=== PATIENT | male | born 1995 | race African-American/Black ===

== ENCOUNTER 2016-09-09 09:48 | Emergency (ER) | payer OTHER ==
[2016-09-09] MEDS ORDERED: IOPAMIDOL 300 (61%) 150 ML VIAL IV ONE (09:49)
--- NOTE | 2016-09-09 10:47 | RAD ---
CHEST - 2 VIEWS COMPARISON: Chest 2 views, 07/21/2016 HISTORY: Shortness of breath for 3 days. FINDINGS: Views: Frontal and lateral chest Lungs: Normal Heart and vessels: Normal Trachea and bronchi: Normal Mediastinum and wei: Normal Costophrenic sulci: Normal Chest wall and bones: Normal. Upper abdomen: Normal. IMPRESSION: Negative 2 view chest.
[2016-09-09] MEDS ORDERED: KETOROLAC TROMETHAMINE 30 MG/ML 1 ML VIAL ONE (11:35)
[2016-09-09] MEDS ORDERED: ALBUTEROL NEB 2.5 MG/3 ML VIAL.NEB NEB ONE (11:37)
[2016-09-09 11:43] LABS: ABSOLUTE NEUTROPHIL COUNT 10.6 K/mm3 (1.8-7.7); BASO # 0.1 K/mm3 (0.0-0.2); BASO % 0.4 % (0.2-1.0); EOS # 0.5 (0.0-0.5); EOS % 3.2 % (0.9-2.9); HEMATOCRIT 34.7 % (32.0-52.0); HEMOGLOBIN 10.8 gm/l (14.0-18.0); IMM NEUT # 0.2 K/mm3 (0-0.2); IMM NEUT% 1.3 % (0-1); LYMPH % 13.8 % (15-45); MEAN CELL VOLUME 82.2 fl (80.0-94.0); MEAN CORPUSCULAR HEMOGLOBIN 25.6 pg (27.0-31.0); MEAN CORPUSCULAR HGB CONC 31.1 g/dl (33.0-37.0); MEAN PLATELET VOLUME 8.2 fl (7.4-10.4); MONO # 0.9 (0.0-0.8); MONO % 6.1 % (4-12); NEUT % 75.2 % (43-75); PLATELET COUNT 453 K/mm3 (130-400); RED CELL DISTRIBUTION WIDTH 14.2 % (11.5-14.5)
[2016-09-09 11:51] LABS: ALB/GLOB RATIO 0.9 (>1.0); ALBUMIN 3.4 gm/dL (3.5-5.7); CALCIUM 8.9 mg/dL (8.6-10.3)
[2016-09-09 11:54] LABS: TROPONIN I < 0.01 ng/ml (0.0-0.06)
[2016-09-09 11:55] LABS: C-REACTIVE PROTEIN 11.4 mg/dl (<1.0)
[2016-09-09 12:02] LABS: THYROID STIMULATING HORMONE 0.89 uIU/ml (0.34-5.60)
[2016-09-09 13:17] LABS: SPECIFIC GRAVITY 1.015 (1.001-1.030); URINE BILIRUBIN NEGATIVE (NEGATIVE); URINE BLOOD TRACE (NEGATIVE); URINE GLUCOSE (UA) NEGATIVE (NEGATIVE); URINE LEUKOCYTE ESTERASE NEGATIVE (NEGATIVE); URINE NITRITE NEGATIVE (NEGATIVE); URINE PROTEIN NEGATIVE (NEGATIVE); URINE UROBILINOGEN NORMAL (0-1 mg/dl)
[2016-09-09 13:18] LABS: URINE APPEARANCE CLEAR; URINE COLOR DARK YELLOW
[2016-09-09 13:26] LABS: URINE BACTERIA 0; URINE EPITHELIAL CELLS 0-1 /hpf; URINE WBC 0-1 /hpf
--- NOTE | 2016-09-09 13:47 | CT ---
CHEST W/ CON COMPARISON: Chest 2 views, 09/09/2016, CT abdomen and pelvis 06/20/2016 HISTORY: Shortness of breath, weight loss, and night sweats. Early satiety. Left-sided chest pain with pleurisy. Technique: Intravenous injection 125 mL Isovue 370. Using a [employer] Aquilion [address] scanner, images were obtained through the thorax, abdomen, and pelvis. An automated dose reduction technique was used to minimize patient radiation dose. Dose information: CTDIvol (mGy): 5.70 DLP(mGycm): 382.00 FINDINGS (thorax with contrast): Lungs: Normal. Trachea and bronchi: Normal. Heart and vessels: Normal. Mediastinum and wei: Normal. Esophagus: Normal. Pleura and pericardium: Normal. Chest wall and bones: Normal. FINDINGS (abdomen and pelvis with contrast): Liver: Normal Gallbladder: Normal Bile ducts: Normal. Pancreas: Normal Spleen: Mild splenomegaly, splenic index 567, volume 359 mL, weight 377 g Adrenal glands: Normal Kidneys: Normal Ureters: Normal Urinary bladder: Normal Prostate gland and seminal vesicles: Normal Blood vessels: Normal. Lymph nodes: Normal Stomach: Normal Duodenum: Normal Small intestine: Normal Appendix: Normal Colon: Normal Abdominal wall and supporting musculature: Normal Bones: Normal. IMPRESSION: 1. Mild splenomegaly. Otherwise normal study.
--- NOTE | 2016-09-09 13:51 | CT ---
ABD/PELVIS W/ CON COMPARISON: Chest 2 views, 09/09/2016. CT abdomen pelvis, 06/20/2016 HISTORY: Weight loss, night sweats and elevated C-reactive protein. Technique: Intravenous injection 125 mL Isovue 370. Using a [employer] Aquilion [address] scanner, images were obtained from the diaphragm to the floor the pelvis. An automated dose reduction technique was used to minimize patient radiation dose. Dose information: CTDIvol (mGy): 5.70 DLP(mGycm): 382.00 FINDINGS (abdomen and pelvis with contrast): Liver: Normal Gallbladder: Normal Bile ducts: Normal. Pancreas: Normal Spleen: Mild splenomegaly, splenic index 567, volume 359 mL, weight 377 g Adrenal glands: Normal Kidneys: Normal Ureters: Normal Urinary bladder: Normal Prostate gland and seminal vesicles: Normal Blood vessels: Normal. Lymph nodes: Normal Stomach: Normal Duodenum: Normal Small intestine: Normal Appendix: Normal Colon: Normal Abdominal wall and supporting musculature: Normal Bones: Normal. IMPRESSION: 1. Mild splenomegaly. Otherwise normal study. The results were discussed with Gutierrez Edmond M.D., 09/09/2016 at 13:45
[2016-09-09] MEDS ORDERED: DEXAMETHASONE SOD PHOS 10 MG/1 ML VIAL ONE (14:00)
== END 2016-09-09 14:28 | disposition home or self-care (01) ==
LOC: ED 09:48
DX: R07.9 Chest pain, unspecified (principal); R53.81 Other malaise; R00.2 Palpitations; R53.1 Weakness; R63.4 Abnormal weight loss; F17.210 Nicotine dependence, cigarettes, uncomplicated
CPT/HCPCS: 86141; 85025; 82550; 80053; 85651; 84443; 84484; 81001; 71020; 74177; 71260; 87804; 94640; 96375; 99284 ×2; 96374; 93005; J1100; J1885; Q9967